=== PATIENT | male | born 1965 | race Caucasian/White ===

== ENCOUNTER 2018-11-02 23:35 | Emergency (ER) | payer MEDICAID ==
[~2018-11-02] VITALS: Ht 180.3 cm; Wt 81.6 kg
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
[2018-11-03 00:04] VITALS: BP 160/96
--- NOTE | 2018-11-03 00:30 | NUR ---
urine specimen collected and sent to lab
[2018-11-03] MEDS ORDERED: oxyCODONE/APAP (5/325 MG) 1 UDTAB TABLET PO ONE (01:00)
--- NOTE | 2018-11-03 01:00 | NUR ---
Xray of left hand, left hip and bilateral feet & ankle in progress at [facility]
[2018-11-03] MEDS ORDERED: oxyCODONE/APAP (5/325 MG) 1 UDTAB TABLET ONE (01:03)
--- NOTE | 2018-11-03 01:11 | NUR ---
wheeled pt to the [facility]
--- NOTE | 2018-11-03 02:56 | NUR ---
Patient discharged to home in stable condition. Written and verbal after care instructions and prescription given. Patient verbalizes understanding of instruction.
--- NOTE | 2018-11-03 03:08 | NUR ---
Patient discharged to home in stable condition. Written and verbal after care instructions , prescription and a pair of crutches given. Patient verbalizes understanding of instruction.Pt ambulatory with a steady gait
== END 2018-11-03 03:00 | disposition home or self-care (01) ==
LOC: ER 23:51
DX: S82.65XA Nondisplaced fracture of lateral malleolus of left fibula, initial encounter for closed fracture (principal); G89.29 Other chronic pain; M54.9 Dorsalgia, unspecified; F41.9 Anxiety disorder, unspecified; F32.9 Major depressive disorder, single episode, unspecified; W22.8XXA Striking against or struck by other objects, initial encounter; Y93.89 Activity, other specified; Y92.410 Unspecified street and highway as the place of occurrence of the external cause; Y99.8 Other external cause status
CPT/HCPCS: 72170-TC; 73120-TC; 73610-TC; 73620-TC; A4606; Z7610